=== PATIENT | female | born 1990 | race Caucasian/White ===

== ENCOUNTER 2018-04-27 19:25 | Emergency (ER) | payer MEDICAID, OTHER ==
[~2018-04-27] VITALS: Ht 162.6 cm; Wt 59.8 kg
[2018-04-27] MEDS ORDERED: ONDANSETRON ODT 4 MG PO ONE (20:00)
[2018-04-27] MEDS ORDERED: PROMETHAZINE 25 MG/ML, 1ML IM ONE (20:00)
[2018-04-27 20:06] LABS: BASOPHILS # (AUTO) 0.03 x10^3/uL (0-0.1); BASOPHILS % (AUTO) 1 % (0-1); EOSINOPHILS # (AUTO) 0.07 x10^3/uL (0-0.4); EOSINOPHILS % (AUTO) 1 % (1-7); LYMPHOCYTES # (AUTO) 1.54 x10^3/uL (1-3.4); LYMPHOCYTES % (AUTO) 25 % (22-44); MD NO; MEAN CORPUSCULAR HEMOGLOBIN 26.9 pg (27.0-34.8); MEAN CORPUSCULAR HGB CONC 32.4 g/dL (32.4-35.8); MEAN CORPUSCULAR VOLUME 83.1 fL (80-100); MEAN PLATELET VOLUME 9.2 fL (7.4-10.4); MONOCYTES # (AUTO) 0.49 x10^3/uL (0.2-0.8); MONOCYTES % (AUTO) 8 % (2-9); NEUTROPHILS # (AUTO) 3.95 x10^3/uL (1.8-6.8); NEUTROPHILS % (AUTO) 65 % (42-75); PLATELET COUNT 295 x10^3/uL (130-400); RED BLOOD COUNT 4.57 x10^6/uL (3.82-5.3); RED CELL DISTRIBUTION WIDTH 13.9 % (9.6-15.2)
[2018-04-27] MEDS ORDERED: ONDANSETRON ODT 4 MG ONE (20:08)
[2018-04-27] MEDS ORDERED: PROMETHAZINE 25 MG/ML, 1ML ONE (20:08)
[2018-04-27 20:17] LABS: ALANINE AMINOTRANSFERASE 19 U/L (12-78); ALBUMIN 3.6 g/dL (3.4-5.0); ANION GAP 8 mmol/L (5-15); CALCIUM 8.7 mg/dL (8.5-10.1); CHLORIDE 108 mmol/L (98-107); CREATININE 0.77 mg/dL (0.55-1.02)
[2018-04-27 20:19] LABS: ALKALINE PHOSPHATASE 58 U/L (45-117); BILIRUBIN,TOTAL 0.2 mg/dL (0.2-1.0); TOTAL PROTEIN 7.1 g/dL (6.4-8.2)
[2018-04-27 20:34] LABS: CULTURE INDICATED? NO; MICROSCOPIC NOT IND
[2018-04-27 20:35] LABS: HCG UR SG <= 1.005 (1.003-1.030)
[2018-04-27] MEDS ORDERED: LOPERAMIDE 2 MG CAPSULE ONE (20:41)
[2018-04-27 20:46] VITALS: BP 125/70
[2018-04-27] MEDS ORDERED: LOPERAMIDE 2 MG CAPSULE PO ONE (21:00)
== END 2018-04-27 21:14 | disposition home or self-care (01) ==
LOC: ED 21:00
DX: K52.29 Other allergic and dietetic gastroenteritis and colitis (principal); R11.12 Projectile vomiting; R19.7 Diarrhea, unspecified
CPT/HCPCS: 36415; 80053; 81003; 81025; 83690; 85025; 96372; 99283; J2550; Q0162